=== PATIENT | male | born 1990 | race Caucasian/White ===

== ENCOUNTER 2018-02-17 03:32 | Emergency (ER) | payer SELFPAY ==
[2018-02-17 04:01] VITALS: BP 146/91
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
== END 2018-02-17 04:20 | disposition left against medical advice (07) ==
LOC: CED 03:32
DX: S09.90XA Unspecified injury of head, initial encounter (principal); S00.81XA Abrasion of other part of head, initial encounter; S10.81XA Abrasion of other specified part of neck, initial encounter; S20.319A Abrasion of unspecified front wall of thorax, initial encounter; S40.212A Abrasion of left shoulder, initial encounter; Y09 Assault by unspecified means

== ENCOUNTER 2019-03-27 07:40 | Emergency (ER) | payer OTHER | END 2019-03-27 10:02 | disposition home or self-care (01) ==